=== PATIENT | male | born 1955 | race Two or more races ===

== ENCOUNTER 2021-02-04 19:55 | Inpatient (IN) | payer MEDICAID ==
[~2021-02-04] VITALS: Ht 181.9 cm; Wt 68.0 kg
--- NOTE | 2021-02-04 19:05 | NUR ---
RN NOTES RECEIVED DIRECT ADMIT REPORT FROM [facility], REPORT GIVEN BY ANTONIO HAYWOOD. ALL PERTINENT ADMISSION INFO REGARDING PT NOTED. WILL WAIT FOR PT TO BE TRANSFERRED TO UNIT AND ADDRESS NEEDS ACCORDINGLY. AUDIOLOGY ASSISTANT MADE AWARE.
[2021-02-04 20:15] VITALS: BP 114/64
--- NOTE | 2021-02-04 20:15 | NUR ---
RN NOTES RECEIVED PT DIRECT ADMIT FROM [facility] VIA GURNEY ACCOMPANIED BY 1 RN AND 2 EDGE ROLLER AND TRANSFERRED TO BED VIA 2 PERSON ASSIST. PT IS ALERT AND ORIENTED X4. PT ON 10L OF O2 VIA NRB MASK, NOTED SOB UPON EXERTION. COMPREHENSIVE PHYSICAL ASSESSMENT AND PATIENT CARE DONE. PT'S SON ([phone]) SERVED WINE STEWARD DURING ASSESSMENT. , SAFETY MEASURES AND ISOLATION PRECAUTION IN PLACE,CALL LIGHT WITHIN REACH, WILL CONTINUE MONITOR AND ASSESS THROUGHOUT THE SHIFT. WILL CARRY OUT MD ORDERS ACCORDINGLY. CHURCH HISTORY TEACHER MADE AWARE.
[2021-02-04 22:00] VITALS: BP 114/62
[2021-02-04] MEDS ORDERED: MAG HYDROX/AL HYDROX/SIMETH 30 ML UDC PO PRN (22:00)
[2021-02-04] MEDS ORDERED: ENOXAPARIN SODIUM 40 MG/0.4 ML DISP.SYRIN SQ SCH (22:00)
[2021-02-04] MEDS ORDERED: HYDROCODONE/APAP 5/325MG TABLET PO PRN (22:00)
[2021-02-04] MEDS ORDERED: ONDANSETRON HCL/PF 4 MG/2 ML VIAL IVP PRN (22:00)
[2021-02-04] MEDS ORDERED: MAGNESIUM HYDROXIDE 30 ML UDC PO PRN (22:00)
[2021-02-04] MEDS ORDERED: MORPHINE SULFATE INJ 2 MG/ML DISP.SYRIN IV PRN (22:00)
--- NOTE | 2021-02-04 22:00 | NUR ---
RN NOTES FACILITATED INSERTION OF IV LINE @ R HAND #22; SECURED, INTACT AND FLUSHING WELL. REDEYE GUNNER MADE AWARE. WILL CONTINUE TO MONITOR AND ASSESS THROUGHOUT THE SHIFT.
[2021-02-04] MEDS ORDERED: CEFTRIAXONE 1 G VIAL ONE (22:33)
[2021-02-04] MEDS ORDERED: AZITHROMYCIN 500 MG VIAL ONE (22:52)
[2021-02-04] MEDS: AZITHROMYCIN 500 MG in IV D5W 250 ML IV SCH (22:54)
[2021-02-04] MEDS: CEFTRIAXONE 1 G in IV D5W 50 ML IV SCH (22:56)
--- NOTE | 2021-02-04 23:00 | NUR ---
RN NOTES NO CHANGE IN PATIENT CONDITION AT THIS TIME PATIENT VITALS STABLE, NO SIGNS OF ACUTE RESPIRATORY DISTRESS. PT STILL IN BED RESTING COMFORTABLY. TRACTOR TRAILER MOVING VAN DRIVER MADE AWARE. WILL CONTINUE TO MONITOR AND REASSESS FOR ANY CHANGES THROUGHOUT THE SHIFT.
[2021-02-05] VITALS: BP 111/89
--- NOTE | 2021-02-05 03:00 | NUR ---
RN NOTES PATIENT REMAINS IN NO ACUTE RESPIRATORY DISTRESS AT THIS TIME, NO CHANGES TO CONDITION/STATUS. AM PATIENT CARE DONE. ANTISQUEAK APPLIER WELL AWARE. WILL CONTINUE TO MONITOR AND REASSESS FOR ANY CHANGES THROUGHOUT THE SHIFT
[2021-02-05 04:00] VITALS: BP 107/64
--- NOTE | 2021-02-05 04:30 | NUR ---
RN NOTES PT NOTED TO INTERMITTENTLY REMOVING HIS NRB MASK, O2 SAT DROPPING TO 90s. ADVISED PT NOT TO REMOVE; RISK AND BENEFITS EXPLAINED. PT VERBALIZED UNDERSTANDING. CURRENT O2 SAT THIS TIME 96% WITH NRB MASK ON. BINDER STRIPPER HAND WELL AWARE WILL CONTINUE TO ASSESS AND MONITOR UNTIL THE END OF THE SHIFT.
--- NOTE | 2021-02-05 05:00 | NUR ---
RN NOTES FACILITATED MRSA SWAB TEST ; PT TOLERATED PROCEDURE. SPECIMEN SECURED AND LABELED AND PLACED IN THE BIOHAZARD/SPECIMEN FRIG. OUT AND OUT CIGAR MAKER HAND MADE AWARE.
--- NOTE | 2021-02-05 06:20 | NUR ---
RN NOTES COMMUNICATED WITH PROMISE VALDOVINOS, PROVIDED UPDATE ON PT'S STATUS ( PT HAD BEEN INTERMITTENLY REMOVING NRB MASK AND O2 SAT DROPS TO 90S AND PT BEEN NOTED TO BE COUGHING A LITTLE HARDER AND 02 SAT DROPS LOWER THAN 90%) VERIFIED IF HE WANTS ABG FOR THIS AM AND ANY COUGH MEDS TO ORDER. PROMISE VALDOVINOS ORDERED ROBITUSSIN 5ML PO Q4 PRN. DIAMOND WHEEL EDGER MADE AWARE. WILL CARRY OUT ORDER REQUESTED. WILL CONTINUE TO MONITOR AND ASSESS THROUGHOUT THE SHIFT
[2021-02-05 06:28] LABS: BASOPHILS % (AUTO) 0.1 % (0.0-2.0); HEMATOCRIT 42 % (39-51); HEMOGLOBIN 14.4 g/dL (13.5-17.5); LYMPHOCYTES # (AUTO) 0.4 /CMM (0.8-4.8); LYMPHOCYTES % (AUTO) 7.5 % (20.0-44.0); MEAN CORPUSCULAR HGB CONC 34 g/dl (31.0-36.0); MEAN CORPUSCULAR VOLUME 89 fL (80-96); MONOCYTES # (AUTO) 0.5 /CMM (0.1-1.30); MONOCYTES % (AUTO) 8.7 % (2.0-12.0); NEUTROPHILS # (AUTO) 4.9 /CMM (1.8-8.9); NEUTROPHILS % (AUTO) 83.7 % (43.0-81.0); PLATELET COUNT (AUTO) 222 /CMM (150-450); RED BLOOD CELL COUNT(AUTO) 4.76 MIL/uL (4.5-6.0); WHITE BLOOD COUNT (AUTO) 5.9 K/uL (4.3-11.0)
[2021-02-05 06:53] LABS: ALBUMIN 2.5 g/dL (3.4-5.0); BILIRUBIN,TOTAL 0.4 mg/dL (0.2-1.0); CALCIUM, SERUM 7.7 mg/dL (8.5-10.1); CREATININE 0.7 mg/dL (0.6-1.3); MAGNESIUM 2.2 mg/dL (1.8-2.4); PHOSPHORUS 2.5 mg/dL (2.5-4.9); POTASSIUM 4.2 mmol/L (3.5-5.1); TOTAL PROTEIN, SERUM 6.4 g/dL (6.4-8.2)
--- NOTE | 2021-02-05 06:55 | NUR ---
RN CLOSING NOTE: PATIENT REMAINS IN ROOM IN NO SIGNS OF RESPIRATORY DISTRESS, PATIENT STILL ON 10L OF 02 VIA NRB MASK ;TOLERATING WELL SATURATING @ >93% SP02 AT THE TIME OF ENDORSEMENT. SAFETY MEASURES IMPLEMENTED, BED IN LOWEST POSITION, LOCKED, SIDE RAILS UP, CALL LIGHT WITHIN REACH. ALL NEEDS AND ORDERS ADDRESSED DURING THE SHIFT. IV ACCESS MAINTAINED INTACT, SECURED AND FLUSHING WELL. ALL DUE MEDS GIVEN ORDERED & SCHEDULED ; PATIENT TOLERATED WELL. PATIENT KEPT CLEAN AND COMFORTABLE WITHIN THE SHIFT. PATIENT ENDORSED TO INCOMING SHIFT RN WITH STABLE VITAL SIGN AND FOR CONTINUITY OF CARE.
[2021-02-05 06:59] LABS: THYROID STIMULATING HORMONE 0.508 uIU/mL (0.358-3.74)
--- NOTE | 2021-02-05 07:45 | NUR ---
REPORT RECEIVED FROM HANNA ALVAREZ. PT IS COVID POSITIVE. ALERT OX4, AMBULATORY. PERUVIAN SPEAKING ONLY. PT ON 10 NRB MASK. PT CHECKED ON HOURLY AND PRN BY NURSING STAFF.
[2021-02-05 08:00] VITALS: BP 115/65
[2021-02-05] MEDS: DEXAMETHASONE SOD PHOSPHATE 10 MG/ML VIAL IV SCH (08:22)
[2021-02-05 12:00] VITALS: BP 109/67
[2021-02-05] MEDS: ENOXAPARIN SODIUM 40 MG/0.4 ML DISP.SYRIN SQ SCH ×2 (15:03→21:13)
[2021-02-05 16:00] VITALS: BP 110/66
--- NOTE | 2021-02-05 18:24 | NUR ---
END OF SHIFT NOTE: PT CONTINUES TO BE ON 10L NRB MASK. PT IS 1 ASST TO COMMODE OR INDEPENDENT WITH URINAL. NO CHANGES IN PATIENT STATUS THIS SHIFT. VSS. PT CHECKED ON HOURLY AND PRN BY NURSING STAFF.
--- NOTE | 2021-02-05 19:25 | NUR ---
PEANUT BLANCHER: CONTINUITY OF CARE Patient in bed, awake, A/O x3. On 10L NRB mask, appears weak, coughing. No c/o pain. Made comfortable in bed to upright posture. Fall precaution maintained.
[2021-02-05 20:15] VITALS: BP 108/61
[2021-02-05] MEDS: GUAIFENESIN/D-METHORPHAN HB 5 ML UDC PO PRN (21:09)
[2021-02-05] MEDS: CEFTRIAXONE 1 G in IV D5W 50 ML IV SCH (21:09)
--- NOTE | 2021-02-05 21:17 | NUR ---
ANTICOAGULANT H/H 14. Plt 222 No signs of bleeding. Lovenox injection given co-signed by ANTONIO Simmons.
[2021-02-05] MEDS: AZITHROMYCIN 500 MG in IV D5W 250 ML IV SCH (22:17)
[2021-02-06] VITALS: BP 127/71
[2021-02-06 04:56] VITALS: BP 135/72
--- NOTE | 2021-02-06 06:40 | NUR ---
ROUTE SPECIALIST: END OF SHIFT REPORT Sinus rhythm in the Tele monitor HR 62. Remains on NRB mask, Oxygen sat to low 80's with exertion. Now on 15L NRB mask. Cough given Robitussin with relief. Headache improved with [place], denies N/V. On IV Rocephin and Zithromax, afebrile. Plan to continue antibiotic, Decadron, and Lovenox, Oxygen support. Fall precaution maintained.
[2021-02-06 07:06] LABS: C-REACTIVE PROTEIN 4.6 mg/dL (0.0-0.9)
--- NOTE | 2021-02-06 07:20 | NUR ---
RN OPENING NOTES RECEIVED PT IN BED, AWAKE, A/O X4. 15L O2 VIA NRB SATURATION @90%. NO SOB OR ANY RESPIRATORY DISTRESS NOTED. SR ON TELE MONITOR. SKIN IS INTACT. REGULAR DIET. IV ACCESS AT RHAND #22 AND RAC #20 BOTH INTACT AND PATENT. NO PAIN REPORTED AT TIME. SAFETY MEASURES IN PLACE. CALL LIGHT WITHIN REACH. BED LOCKED AND AT LOWEST POSITION WITH SIDE RAILS UP X2. WILL CONTINUE TO MONITOR.
[2021-02-06 08:00] VITALS: BP 119/67
[2021-02-06] MEDS ORDERED: ALBUTEROL SULFATE INH 18 GM HFA.AER.AD IH PRN (08:30)
[2021-02-06] MEDS: DEXAMETHASONE SOD PHOSPHATE 10 MG/ML VIAL IV SCH (09:29)
[2021-02-06] MEDS: ENOXAPARIN SODIUM 40 MG/0.4 ML DISP.SYRIN SQ SCH ×2 (09:34→21:21)
[2021-02-06 12:00] VITALS: BP 137/69
--- NOTE | 2021-02-06 12:00 | NUR ---
RT Pt had low SpO2 of 84-86% on non-rebreather at 15L. Pt was placed on vapotherm per MD order. Addendum: 02/06/21 at 1307 by SHABBIR TOMAS RT Amended: Links added.
--- NOTE | 2021-02-06 12:18 | NUR ---
RN NOTES PT DESATS TO 86% WITH SOB. CHARGE NURSE AWARE. PT ON HIGH FLOW 40L, 100% O2, SATURATING @92%. WILL CONTINUE TO MONITOR.
[2021-02-06] MEDS: ACETAMINOPHEN 325 MG TABLET PO PRN (13:13)
[2021-02-06 16:00] VITALS: BP 135/67
--- NOTE | 2021-02-06 18:44 | NUR ---
RN CLOSING NOTES PT RESTING IN BED. ON HIGH FLOW 40L O2 100%, SATURATION AT 90-95%. NO SOB OR ANY DISTRESS NOTED. NO SIGNIFICANT CHANGES THROUGHOUT THE SHIFT. NO PAIN REPORTED AT THIS TIME. SAFETY MEASURES MAINTAINED. ENDORSED TO NIGHT RN FOR CONTINUATION OF CARE.
--- NOTE | 2021-02-06 19:59 | NUR ---
RN NOTE PATIENT A/OX4, IN BED WITH HEAD OF BED ELEVATED. ON HIGH FLOW 40L AND NON-REBREATHER 15L, O2 SAT 94%. NO SOB OR ANY DISTRESS AT THIS TIME. TELE MONITOR ON, SR. IV ACCESS ON RIGHT HAND #22 AND RIGHT AC #20 PATENT AND INTACT. FLUSHED WITH NS. NO S/S OF INFILTRATION. SAFETY MEASURES IMPLEMENTED. CALL LIGHT WITHIN REACH. BED LOCKED AND AT LOWEST POSITION. WILL CONTINUE TO MONITOR.
[2021-02-06 20:00] VITALS: BP 124/71
[2021-02-06] MEDS: CEFTRIAXONE 1 G in IV D5W 50 ML IV SCH (21:20)
[2021-02-06] MEDS: AZITHROMYCIN 500 MG in IV D5W 250 ML IV SCH (21:56)
[2021-02-07] VITALS: BP 121/61
[2021-02-07] MEDS: GUAIFENESIN/D-METHORPHAN HB 5 ML UDC PO PRN ×4 (01:53→20:04)
[2021-02-07] MEDS: ACETAMINOPHEN 325 MG TABLET PO PRN ×2 (03:28→12:10)
[2021-02-07 04:00] VITALS: BP 140/72
--- NOTE | 2021-02-07 07:25 | NUR ---
RN CLOSING NOTE PATIENT RECEIVED RESTING IN SEMI-FOWLERS POSITION, A/OX4. PATIENT IS ON O2 THERAPY VIA HIGH FLOW 40 LPM + NON-REBREATHER 15 LPM. NO SOB OR ANY DISTRESS AT THIS TIME. TELE MONITOR ON. IV ACCESS ON RIGHT HAND #22 AND RIGHT AC #20 PATENT AND INTACT. NO S/S OF INFILTRATION. SAFETY MEASURES IMPLEMENTED, BED LOCKED IN LOWEST POSITION, SIDE RAILS UP X2, CALL LIGHT WITHIN REACH. WILL CONTINUE TO MONITOR AND PROVIDE CARE THROUGHOUT SHIFT.
--- NOTE | 2021-02-07 07:37 | NUR ---
RN NOTE PATIENT A/OX4, IN BED WITH HEAD OF BED ELEVATED. ON HIGH FLOW 40L AND NON-REBREATHER 15L, O2 SAT 95%. NO SOB OR ANY DISTRESS AT THIS TIME. TELE MONITOR ON, SR. IV ACCESS ON RIGHT HAND #22 AND RIGHT AC #20 PATENT AND INTACT. FLUSHED WITH NS. NO S/S OF INFILTRATION. COUGH RELIEVED BY ROBITUSSIN PRN ORDER. SAFETY MEASURES IMPLEMENTED. CALL LIGHT WITHIN REACH. BED LOCKED AND AT LOWEST POSITION. ENDORSE TO AM SHIFT.
[2021-02-07 08:00] VITALS: BP_SYST 122; BP_SYST 170; BP_DIAS 68; BP_DIAS 94
[2021-02-07] MEDS: ENOXAPARIN SODIUM 40 MG/0.4 ML DISP.SYRIN SQ SCH ×2 (09:48→20:09)
[2021-02-07 12:00] VITALS: BP 136/71
[2021-02-07] MEDS: methylPREDNISolone SOD SUCC 125 MG/2ML VIAL IV SCH ×2 (12:10→20:07)
[2021-02-07 12:31] LABS: FERRITIN 4617 ng/mL (8-388)
[2021-02-07 16:00] VITALS: BP 135/74
--- NOTE | 2021-02-07 19:09 | NUR ---
RN CLOSING NOTE PATIENT RESTING IN SEMI-FOWLERS POSITION, A/OX4. PATIENT IS ON O2 THERAPY VIA HIGH FLOW 40 LPM + NON-REBREATHER 15 LPM. NO SOB OR ANY DISTRESS AT THIS TIME. TELE MONITOR ON. IV ACCESS ON RIGHT HAND #22 AND RIGHT AC #20 PATENT AND INTACT. NO S/S OF INFILTRATION. SAFETY MEASURES IMPLEMENTED, BED LOCKED IN LOWEST POSITION, SIDE RAILS UP X2, CALL LIGHT WITHIN REACH. ISOLATION PRECAUTIONS MAINTAINED. WILL ENDORSE CONTINUATION OF CARE TO UPCOMING SHIFT.
--- NOTE | 2021-02-07 19:10 | NUR ---
RN OPENING NOTE RECEIVED PATIENT IN BED RESTING ALERT ORIENTED X4 VERBALLY RESPONSIVE JORDANIAN SPEAKER ONLY,COVID POSITIVE, ON HIGH FLOW OXYGEN 40L AND 15L ON NON REBREATHER MASK,O2:92% IV SITE IS ON RIGHT HAND AND RIGHT AC INTACT PATENT CONTINENT TO BOWEL/BLADDER AMBULATORY WITH ASSIST,CALL LIGHT WITHIN REACH,BED IN LOW POSITION AND LOCKED,CONTINUE TO MONITOR.
[2021-02-07 20:00] VITALS: BP 119/62
[2021-02-07] MEDS: AZITHROMYCIN 250 MG TABLET PO SCH (20:07)
[2021-02-07] MEDS: CEFTRIAXONE 1 G in IV D5W 50 ML IV SCH (21:43)
[2021-02-07] MEDS: ZOLPIDEM TARTRATE 5 MG TABLET PO PRN (21:44)
[2021-02-08] VITALS: BP 136/75
[2021-02-08 04:00] VITALS: BP 133/50
[2021-02-08] MEDS: methylPREDNISolone SOD SUCC 125 MG/2ML VIAL IV SCH ×3 (04:31→20:10)
[2021-02-08] MEDS: GUAIFENESIN/D-METHORPHAN HB 5 ML UDC PO PRN ×2 (04:35→20:10)
--- NOTE | 2021-02-08 06:35 | NUR ---
RN CLOSING NOTE PATIENT REMAINS ON ALERT ORIENTED X4 VERBALLY RESPONSIVE,LATVIAN SPEAKER ONLY,ON 40L HIGH FLOW OXYGEN 100% AND 15L NON REBREATHER MASK O2:90%,IV SITE IS ON RIGHT HAND AND RIGHT AC INTACT PATIENT,AMBULATORY WITH ASSIST,CONTINENT TO BOWEL/BLADDER, ALL DUE MEDS GIVEN MD ORDERED KEEP CLEAN AND DRY ALL THE TIME,KEPT CALL LIGHT WITHIN REACH,ALL NEEDS MET ENDORSE NEXT COMING SHIFT FOR CONTINUATION OF CARE.
--- NOTE | 2021-02-08 07:15 | NUR ---
RN OPENING NOTES RECEIVED PT IN BED, AWAKE, A/O X4. ON HIGH FLOW 40L FiO2 100% WITH 15L NRB SATURATION @90%. NO SOB OR ANY RESPIRATORY DISTRESS NOTED. SR ON TELE MONITOR. SKIN IS INTACT. IV ACCESS AT RHAND #22 AND RAC #20 BOTH INTACT AND PATENT. NO PAIN REPORTED AT TIME. SAFETY MEASURES IN PLACE. CALL LIGHT WITHIN REACH. BED LOCKED AND AT LOWEST POSITION WITH SIDE RAILS UP X2. WILL CONTINUE TO MONITOR.
[2021-02-08 07:54] LABS: ABG BASE EXCESS -0.7 mmol/L; ABG OXYGEN SATURATION 95.5 % (92.0-98.5); ABG PCO2 31.6 mmHg (35.0-45.0); ABG PH 7.462 (7.350-7.450); ABG PO2 78.8 mmHg (75.0-100.0); AaDO2 602.6 mmHg; COHb 0.1 % (0.5-1.5); MetHb 0.4 % (0.0-1.5); SITE, ABG Right Radial; VENT MODE, BG HFNC 40L/100% + NRB 15L
[2021-02-08 08:00] VITALS: BP 133/73
[2021-02-08] MEDS: ENOXAPARIN SODIUM 40 MG/0.4 ML DISP.SYRIN SQ SCH ×2 (08:49→20:12)
[2021-02-08 12:00] VITALS: BP 111/66
[2021-02-08 13:09] LABS: C-REACTIVE PROTEIN 6.9 mg/dL (0.0-0.9)
[2021-02-08 16:00] VITALS: BP 123/65
[2021-02-08] MEDS ORDERED: diphenhydrAMINE HCL 50 MG/ML VIAL IV ONE (16:00)
[2021-02-08] MEDS ORDERED: ACETAMINOPHEN 325 MG TABLET PO ONE (16:00)
[2021-02-08] MEDS ORDERED: TOCILIZUMAB 400 MG in IV NS 0.9% 80 ML IV ONE (16:30)
--- NOTE | 2021-02-08 18:44 | NUR ---
RN CLOSING NOTES PT RESTING IN BED. SATURATION AT 90-95%. NO SOB OR ANY DISTRESS NOTED. NO SIGNIFICANT CHANGES THROUGHOUT THE SHIFT. NO PAIN REPORTED AT THIS TIME. SAFETY MEASURES MAINTAINED. ENDORSED TO NIGHT RN FOR CONTINUATION OF CARE.
--- NOTE | 2021-02-08 19:10 | NUR ---
RN OPENING NOTE RECEIVED PATIENT IN BED RESTING ALERT ORIENTED X4 VERBALLY RESPONSIVE [place] SPEAKER ONLY,ON HIGH FLOW OXYGEN 40L FIO2:100% AND 15L NONREBREATHER MASK O2:89% IV SITE ARE ON RIGHT HAND AND RIGHT AC INTACT PATENT CONTINENT TO BOWEL/BLADDER,AMBULATORY WITH ASSIST,CALL LIGHT WITHIN REACH,SAFETY MEASURE IMPLEMENT BED IN LOW POSITION AND LOCKED,CONTINUE TO MONITOR.
[2021-02-08 20:00] VITALS: BP 133/67
[2021-02-08] MEDS: AZITHROMYCIN 250 MG TABLET PO SCH (20:10)
[2021-02-08] MEDS: ZOLPIDEM TARTRATE 5 MG TABLET PO PRN (21:41)
[2021-02-08] MEDS: CEFTRIAXONE 1 G in IV D5W 50 ML IV SCH (21:41)
[2021-02-09] VITALS: BP 122/61
[2021-02-09 04:00] VITALS: BP 117/55
[2021-02-09] MEDS: methylPREDNISolone SOD SUCC 125 MG/2ML VIAL IV SCH ×3 (04:12→20:20)
--- NOTE | 2021-02-09 06:47 | NUR ---
RN CLOSING NOTE PATIENT REMAINS ON ALERT ORIENTED X4 VERBALLY RESPONSIVE [place] SPEAKER ONLY,NO SOB NOT ACUTE DISTRESS NOTED,HE IS ON HIGH FLOW OXYGEN 40L FIO2:100% AND 15L NON REBREATHER MASK O2:92%,IV SITE IS ON RIGHT HAND AND RIGHT AC INTACT PATENT ALL DUE MEDS GIVEN MD ORDERED,KEPT CLEAN AND DRY ALL THE TIME,KEPT COMFORTABLE ALL NEEDS MET ENDORSE NEXT COMING SHIFT FOR CONTINUATION OF CARE.
--- NOTE | 2021-02-09 07:15 | NUR ---
RN OPENING NOTE RECEIVED PATIENT IN BED RESTING ALERT ORIENTED X4 VERBALLY RESPONSIVE PANAMANIAN SPEAKER ONLY,ON HIGH FLOW OXYGEN 40L FIO2:100% AND 15L NONREBREATHER MASK O2 SATURATION:90%. IV SITES ON RIGHT HAND AND RIGHT AC, BOTH INTACT & PATENT. NO S/S OF INFECTION AT THIS TIME. CONTINENT TO BOWEL/BLADDER, AMBULATORY WITH ASSIST, CALL LIGHT WITHIN REACH, SAFETY MEASURE IMPLEMENT BED IN LOW POSITION AND LOCKED, WILL CONTINUE TO MONITOR AND PROVIDE TREATMENT.
[2021-02-09 08:00] VITALS: BP 133/72
[2021-02-09] MEDS: ENOXAPARIN SODIUM 40 MG/0.4 ML DISP.SYRIN SQ SCH ×2 (08:40→20:21)
[2021-02-09 12:00] VITALS: BP 129/68
[2021-02-09 16:00] VITALS: BP 139/77
--- NOTE | 2021-02-09 17:45 | NUR ---
PATIENT TRANSFERRED TO ROOM 103-1
--- NOTE | 2021-02-09 18:56 | NUR ---
RN CLOSING NOTE PATIENT IN BED RESTING ALERT ORIENTED X4 VERBALLY RESPONSIVE PARAGUAYAN SPEAKER ONLY,ON HIGH FLOW OXYGEN 40L FIO2:100% AND 15L NONREBREATHER MASK O2 SATURATION:93%. IV SITES ON RIGHT HAND AND RIGHT AC, BOTH INTACT & PATENT. NO S/S OF INFECTION AT THIS TIME. CONTINENT TO BOWEL/BLADDER, AMBULATORY WITH ASSIST, CALL LIGHT WITHIN REACH, SAFETY MEASURE IMPLEMENT BED IN LOW POSITION AND LOCKED, WILL ENDORSE TO INSURANCE SALES SPECIALIST NURSE FOR DIAZ.
--- NOTE | 2021-02-09 19:10 | NUR ---
RECEIVED PT ON BED AWAKE A/O X4 MAORI SPEAKING ONLY ON HIGH FLOW O2 40L FIO2 100% AND NRM 15L SPO2 93-95% BREATHING EVEN AND UNLABORED, COVID POSITIVE, DID NOT RECEIVED COVID VACCINE PER THE SON IN WHICH WE CALL WHEN I DO ROUNDS ON PATIENTS ROOM, PT IS EATING ALSO WHEN I DO ROUNDS TOLERATING WELL, TELE MONITOR READS SINUS RHYTHM 80'S BED ON LWOEST POSITION AND LOCKED SIDE RAILS UP X 2 CALL LIGHT AND URINAL AT BED SIDE WILL CONT TO MONITOR
[2021-02-09 20:00] VITALS: BP 131/69
[2021-02-10] VITALS: BP 132/61
[2021-02-10 04:00] VITALS: BP 129/59
[2021-02-10] MEDS: methylPREDNISolone SOD SUCC 125 MG/2ML VIAL IV SCH ×3 (04:04→20:10)
[2021-02-10] MEDS: GUAIFENESIN/D-METHORPHAN HB 5 ML UDC PO PRN ×2 (04:56→05:10)
[2021-02-10 06:16] LABS: BASOPHILS % (AUTO) 0.2 % (0.0-2.0); HEMATOCRIT 41 % (39-51); HEMOGLOBIN 13.4 g/dL (13.5-17.5); LYMPHOCYTES # (AUTO) 0.3 /CMM (0.8-4.8); MEAN CORPUSCULAR HGB CONC 33 g/dl (31.0-36.0); MEAN CORPUSCULAR VOLUME 90 fL (80-96); MONOCYTES # (AUTO) 0.9 /CMM (0.1-1.30); MONOCYTES % (AUTO) 5.4 % (2.0-12.0); NEUTROPHILS # (AUTO) 14.7 /CMM (1.8-8.9); NEUTROPHILS % (AUTO) 92.4 % (43.0-81.0); PLATELET COUNT (AUTO) 436 /CMM (150-450); RED BLOOD CELL COUNT(AUTO) 4.53 MIL/uL (4.5-6.0); WHITE BLOOD COUNT (AUTO) 15.9 K/uL (4.3-11.0)
[2021-02-10 06:39] LABS: CALCIUM, SERUM 8.5 mg/dL (8.5-10.1); CREATININE 0.7 mg/dL (0.6-1.3); POTASSIUM 4.4 mmol/L (3.5-5.1)
--- NOTE | 2021-02-10 06:41 | NUR ---
PT ON BED SLEEPING EASY TO WAKE NO SIGN AND SYMPTOMS OF RESPIRATORY DISTRESS STILL ON HIGH FLOW 40L 100% FIO2 AND 15L O2 VIA NON REBREATHER MASK SPO2 95-97%, NO SIGNIFICANT CHANGES ON CONDITION NOTED ALL NEEDS ATTENDED, DROPLET ISOLATION FOR COVID 19 MAINTAIN BED ON LOWEST POSITION AND LOCKED SIDE RAILS UP X2 CALL LIGHT WITHIN REACH
--- NOTE | 2021-02-10 07:46 | NUR ---
RN OPENING NOTE PATIENT IS IN BED WITH HOB AT SEMI FOWLERS POSITION. PATIENT IS ON HIGH FLOW 40L AT 100% AND NRB 15L. PATIENT IS AOX4. SKIN IS INTACT. RAC #20 IS PATENT AND INTACT. BED IS LOCKED IN THE LOWEST POSITION, 3 GUARD RAILS RAISED, CALL ALVARADO WITHIN REACH, AND ALL HOSPITAL SAFETY PRECAUTIONS ARE BEING FOLLOWED. WILL CONTINUE TO MONITOR THROUGHOUT SHIFT.
[2021-02-10 08:00] VITALS: BP 137/71
[2021-02-10] MEDS: ENOXAPARIN SODIUM 40 MG/0.4 ML DISP.SYRIN SQ SCH ×2 (09:01→20:10)
[2021-02-10 12:00] VITALS: BP 125/69
[2021-02-10 16:00] VITALS: BP 121/67
--- NOTE | 2021-02-10 18:46 | NUR ---
RN CLOSING NOTE PATIENT IS IN BED WITH HOB AT SEMI FOWLERS POSITION. PATIENT IS ON HIGH FLOW 40L AT 100% AND NRB 15L. PATIENT IS AOX4. SKIN IS INTACT. RAC #20 IS PATENT AND INTACT. BED IS LOCKED IN THE LOWEST POSITION, 3 GUARD RAILS RAISED, CALL ALVARADO WITHIN REACH, AND ALL HOSPITAL SAFETY PRECAUTIONS ARE BEING FOLLOWED. ALL DUE MEDS GIVEN AND PATIENT REMAINED STABLE THROUGHOUT SHIFT. WILL ENDORSE TO ELECTRICAL CAD DESIGNER RN.
--- NOTE | 2021-02-10 19:18 | NUR ---
RECEIVED PT ON BED AWAKE A/O X4 KAZAKH SPEAKING ONLY ON HIGH FLOW O2 40L FIO2 100% AND NRM 15L SPO2 93-95% BREATHING EVEN AND UNLABORED, COVID POSITIVE,, TELE MONITOR READS SINUS NADIA'S 50'S AHVE RIGHT AC # 20 IV PATENT AND FLUSHED, PT IS USING URINAL WEITH DOMENICA COLOR URINE OUTPUT, BED ON LOWEST POSITION AND LOCKED SIDE RAILS UP X 2 CALL LIGHT AND URINAL AT BED SIDE WILL CONT TO MONITOR
[2021-02-10 20:00] VITALS: BP 130/69
[2021-02-11] VITALS: BP 126/63
--- NOTE | 2021-02-11 03:30 | NUR ---
PT SPO2 THE ENTIRE NIGHT IS ON 97-98% RT REMOVED THE NON REBREATHER MASK TITRATION TRIAL PT SPO2 VIA HIGH FLOW 40L 100% FIO2 IS 91-93% WILL CONT TO MONITOR THE PT
[2021-02-11 04:00] VITALS: BP 128/62
[2021-02-11] MEDS: methylPREDNISolone SOD SUCC 125 MG/2ML VIAL IV SCH ×3 (04:16→21:06)
[2021-02-11 06:32] LABS: HEMATOCRIT 42 % (39-51); HEMOGLOBIN 13.9 g/dL (13.5-17.5); LYMPHOCYTES # (AUTO) 0.3 /CMM (0.8-4.8); LYMPHOCYTES % (AUTO) 2.1 % (20.0-44.0); MEAN CORPUSCULAR HGB CONC 33 g/dl (31.0-36.0); MEAN CORPUSCULAR VOLUME 91 fL (80-96); MONOCYTES # (AUTO) 0.7 /CMM (0.1-1.30); MONOCYTES % (AUTO) 4.6 % (2.0-12.0); NEUTROPHILS % (AUTO) 93.3 % (43.0-81.0); PLATELET COUNT (AUTO) 422 /CMM (150-450); RED BLOOD CELL COUNT(AUTO) 4.61 MIL/uL (4.5-6.0)
[2021-02-11 06:33] LABS: CALCIUM, SERUM 8.2 mg/dL (8.5-10.1); CREATININE 0.6 mg/dL (0.6-1.3); POTASSIUM 4.6 mmol/L (3.5-5.1)
--- NOTE | 2021-02-11 06:41 | NUR ---
PT ON BED AWAKE NO SIGN AND SYMPTOMS OF RESPIRATORY DISTRESS STILL ON HIGH FLOW 40L 100% FIO2 AND HE PUT BACK THE NON REBREATHER MASK @ 0530 HIS SPO2 95-97% NOW, NO SIGNIFICANT CHANGES ON CONDITION NOTED ALL NEEDS ATTENDED, DROPLET ISOLATION FOR COVID 19 MAINTAIN BED ON LOWEST POSITION AND LOCKED SIDE RAILS UP X2 CALL LIGHT WITHIN REACH
--- NOTE | 2021-02-11 07:30 | NUR ---
RN CLOSING NOTES Patient is alert and oriented,breathing even and unlabored. On via high flow at 75% Fi 02 and 40 liters with 02 sat of 96%. No c/o pain or discomfort. Patient will be monitored. Call light with in reach. Bed is in lowest and locked position. Will endorse to next shift for DIAZ. Addendum: 02/11/21 at 1842 by RICHARD CHAVIRA RN wRONG TIME
--- NOTE | 2021-02-11 07:30 | NUR ---
RN OPENING NOTES Patient is alert and oriented,breathing even and unlabored. On 02 via high flow at 100% Fi 02 and 40 liters with 02 sat of 98%. No c/o pain or discomfort. Patient will be monitored. Call light with in reach. Bed is in lowest and locked position.
[2021-02-11 08:00] VITALS: BP 121/71
--- NOTE | 2021-02-11 08:00 | NUR ---
Patient's fi02 lowered to 80%. yuriy well
[2021-02-11] MEDS: ENOXAPARIN SODIUM 40 MG/0.4 ML DISP.SYRIN SQ SCH ×2 (08:33→21:08)
--- NOTE | 2021-02-11 11:00 | NUR ---
Patient's fi02 lowered to 60 %, yuriy well per Md Jones orders
[2021-02-11 12:00] VITALS: BP_SYST 121; BP_SYST 129; BP_DIAS 71
[2021-02-11 12:34] LABS: C-REACTIVE PROTEIN 0.7 mg/dL (0.0-0.9)
[2021-02-11 16:00] VITALS: BP 134/74
--- NOTE | 2021-02-11 18:00 | NUR ---
RT INCREASED FI 02 TO 75 % VIA HIGH FLOW DUE TO 02 SAT OF 89 %. NO C/O SOB VERALIZED
--- NOTE | 2021-02-11 18:38 | NUR ---
RN CLOSING NOTES Patient is alert and oriented,breathing even and unlabored. On 02 via high flow at 75% Fi 02 and 40 liters with 02 sat of 96%. No c/o pain or discomfort. Patient will be monitored. Call light with in reach. Bed is in lowest and locked position. Will endorse to next shift for DIAZ.
--- NOTE | 2021-02-11 19:30 | NUR ---
RT PT RECVD ON HFNC 40 LPM, 75% FIO2 WITH SPO2 93-94%. PT IS AWAKE AND ALERT. NO SOB OR RESPIRATORY DISTRESS NOTED AT THIS TIME, WILL CONTINUE TO MONITOR THROUGHOUT SHIFT. HFNC PLUGGED INTO RED OUTLET.
--- NOTE | 2021-02-11 19:35 | NUR ---
RN NOTE RECEIVED PT IN BED, ALERT AND ORIENTED. TALKING TO FAMILY OVER THE PHONE. NO SIGNS OF DISTRESS NOTED. ON HIGH FLOW NC 40L FIO2 75 %. ON TELE MONITORING SHOWS SINUS NADIA WITH HR OF 54, PT BASELINE. RAC IV PATENT AND INTACT, FLUSHED. ALL SAFETY MEASURES IMPLEMENTED PER PROTOCOL. SIDE RAILS UP, BED LOCKED IN LOWEST POSITION. CALL LIGHT WITHIN REACH.
[2021-02-11 20:00] VITALS: BP 133/78
--- NOTE | 2021-02-11 23:30 | NUR ---
RN NOTE ASSISTED PT TO BEDSIDE COMMODE, WITH EPISODE OF DESATURATION TO 85%. ASSISTED BACK TO BED, KEPT HOB ELEVATED. O2 SAT GOES BACK UP TO 95%
[2021-02-12] VITALS: BP 124/68
[2021-02-12 04:00] VITALS: BP 113/66
[2021-02-12] MEDS: methylPREDNISolone SOD SUCC 125 MG/2ML VIAL IV SCH ×3 (05:04→20:00)
[2021-02-12 06:43] LABS: CREATININE 0.4 mg/dL (0.6-1.3); POTASSIUM 4.6 mmol/L (3.5-5.1)
--- NOTE | 2021-02-12 06:46 | NUR ---
RN CLOSING NOTES PT TOLERATING HIGHFLOW SETTINGS. NO SIGNS OF RESP DISTRESS NOTED. KEPT HOB ELEVATED. PT CONTINENT, ABLE TO USE URINAL. IV REMAIN PATENT AND INTACT. VS STABLE. CALL LIGHT WITHIN REACH AT ALL TIMES. WILL ENDORSE TO NEXT SHIFT NURSE FOR DIAZ.
[2021-02-12 07:16] LABS: BASOPHILS % (AUTO) 0.1 % (0.0-2.0); HEMATOCRIT 43 % (39-51); LYMPHOCYTES # (AUTO) 0.5 /CMM (0.8-4.8); LYMPHOCYTES % (AUTO) 3.3 % (20.0-44.0); MEAN CORPUSCULAR HGB CONC 33 g/dl (31.0-36.0); MEAN CORPUSCULAR VOLUME 90 fL (80-96); MONOCYTES # (AUTO) 0.8 /CMM (0.1-1.30); MONOCYTES % (AUTO) 5.1 % (2.0-12.0); NEUTROPHILS # (AUTO) 13.6 /CMM (1.8-8.9); NEUTROPHILS % (AUTO) 91.5 % (43.0-81.0); PLATELET COUNT (AUTO) 430 /CMM (150-450); RED BLOOD CELL COUNT(AUTO) 4.74 MIL/uL (4.5-6.0); WHITE BLOOD COUNT (AUTO) 14.9 K/uL (4.3-11.0)
--- NOTE | 2021-02-12 07:30 | NUR ---
RN OPENING NOTE PATIENT IS CURRENTLY IN BED WITH HOB AT SEMI FOWLERS POSITION. PATIENT IS ON HIGH FLOW 40L AT 75%. PATIENT IS AOX4. SINUS NADIA NOTED ON MONITOR. SKIN IS INTACT. RAC #20 IS PATENT AND INTACT. BED IS LOCKED IN THE LOWEST POSITION, 3 GUARD RAILS RAISED, CALL ALVARADO WITHIN REACH, AND ALL HOSPITAL SAFETY PRECAUTIONS ARE BEING FOLLOWED. WILL CONTINUE TO MONITOR THROUGHOUT SHIFT.
[2021-02-12 08:00] VITALS: BP 120/70
[2021-02-12] MEDS: ENOXAPARIN SODIUM 40 MG/0.4 ML DISP.SYRIN SQ SCH ×2 (09:07→20:01)
[2021-02-12 12:00] VITALS: BP 126/77
[2021-02-12 16:00] VITALS: BP 127/69
[2021-02-12] MEDS: ENSURE ENLIVE 237 ML LIQUID (VANILLA) PO SCH (16:57)
--- NOTE | 2021-02-12 18:23 | NUR ---
RN CLOSING NOTE PATIENT IS CURRENTLY IN BED WITH HOB AT SEMI FOWLERS POSITION. PATIENT IS ON HIGH FLOW 40L AT 75%. PATIENT IS AOX4. SINUS NADIA NOTED ON MONITOR. SKIN IS INTACT. RAC #20 IS PATENT AND INTACT. BED IS LOCKED IN THE LOWEST POSITION, 3 GUARD RAILS RAISED, CALL ALVARADO WITHIN REACH, AND ALL HOSPITAL SAFETY PRECAUTIONS ARE BEING FOLLOWED. ALL DUE MEDS GIVEN AND PATIENT REMAINED STABLE THROUGHOUT SHIFT. WILL ENDORSE TO EMBLEM CUTTER RN FOR DIAZ.
--- NOTE | 2021-02-12 19:21 | NUR ---
RN NOTE RECEIVED PT AWAKE AND ALERT IN BED WITH HEAD OF BED ELEVATED. CURRENTLY ON HI FLOW NASAL CANNULA 40L AND FIO2 75%. SPO2 96%. RESPIRATIONS UNLABORED, DENIES PAIN OR DISCOMFORT, URINAL AT BEDSIDE REACHABLE, WITH RIGHT AC IV PATENT AND FLUSHING WELL WITHOUT ISSUES, PLAN OF CARE DISCUSSED, CALL LIGHT WITHIN REACH, SAFETY MEASURES IN PLACE PER PROTOCOL, WILL MONITOR PATIENT.
[2021-02-12 20:00] VITALS: BP 132/76
[2021-02-13] VITALS: BP 117/80
[2021-02-13 04:00] VITALS: BP 137/79
[2021-02-13] MEDS: methylPREDNISolone SOD SUCC 125 MG/2ML VIAL IV SCH ×3 (04:03→20:08)
[2021-02-13 05:58] LABS: BASOPHILS # (AUTO) 0.1 /CMM (0.0-0.2); BASOPHILS % (AUTO) 0.4 % (0.0-2.0); EOSINOPHILS % (AUTO) 0.1 % (0.0-6.0); HEMATOCRIT 43 % (39-51); HEMOGLOBIN 14.1 g/dL (13.5-17.5); LYMPHOCYTES # (AUTO) 0.7 /CMM (0.8-4.8); LYMPHOCYTES % (AUTO) 3.9 % (20.0-44.0); MEAN CORPUSCULAR HGB CONC 33 g/dl (31.0-36.0); MEAN CORPUSCULAR VOLUME 90 fL (80-96); MONOCYTES % (AUTO) 5.8 % (2.0-12.0); NEUTROPHILS # (AUTO) 15.7 /CMM (1.8-8.9); NEUTROPHILS % (AUTO) 89.8 % (43.0-81.0); PLATELET COUNT (AUTO) 420 /CMM (150-450); RED BLOOD CELL COUNT(AUTO) 4.73 MIL/uL (4.5-6.0); WHITE BLOOD COUNT (AUTO) 17.5 K/uL (4.3-11.0)
[2021-02-13 06:38] LABS: ALBUMIN 2.4 g/dL (3.4-5.0); BILIRUBIN,TOTAL 0.8 mg/dL (0.2-1.0); CALCIUM, SERUM 8.4 mg/dL (8.5-10.1); CREATININE 0.5 mg/dL (0.6-1.3); POTASSIUM 4.5 mmol/L (3.5-5.1); TOTAL PROTEIN, SERUM 5.6 g/dL (6.4-8.2)
--- NOTE | 2021-02-13 06:44 | NUR ---
RN NOTE NO ACUTE CHANGES OBSERVED OVERNIGHT. AWAKE WITH HEAD OF BED ELEVATED. REMAINS ON HI FLOW NASAL CANNULA. TOLERATING SETTINGS WELL. RESPIRATIONS EVEN AND UNLABORED, SPO2 98% VIA CONTINUOUS PULSE OXIMETRY. DENIES PAIN OR DISCOMFORT. RAC IV PATENT. ALL NEEDS MET AND ATTENDED TO, SAFETY MEASURES IN PLACE PER PROTOCOL, CALL LIGHT WITHIN REACH,
--- NOTE | 2021-02-13 07:30 | NUR ---
RN NOTE RECEIVED PT AWAKE AND ALERT IN BED WITH HEAD OF BED ELEVATED. CURRENTLY ON HI FLOW NASAL CANNULA 40L AND FIO2 75%. SPO2 96%. RESPIRATIONS UNLABORED, DENIES PAIN OR DISCOMFORT, URINAL AT BEDSIDE REACHABLE, WITH RIGHT AC IV PATENT AND FLUSHING WELL WITHOUT ISSUES, PLAN OF CARE DISCUSSED, CALL LIGHT WITHIN REACH, SAFETY MEASURES IN PLACE PER PROTOCOL, WILL CONTINUE TO MONITOR AND PROVIDE TREATMENT.
[2021-02-13 08:00] VITALS: BP 124/68
[2021-02-13] MEDS: ENOXAPARIN SODIUM 40 MG/0.4 ML DISP.SYRIN SQ SCH ×2 (08:39→20:09)
[2021-02-13] MEDS: ENSURE ENLIVE 237 ML LIQUID (VANILLA) PO SCH ×2 (09:29→16:25)
[2021-02-13 12:00] VITALS: BP 105/77
[2021-02-13 16:00] VITALS: BP 129/75
--- NOTE | 2021-02-13 18:59 | NUR ---
RN NOTE NO ACUTE CHANGES OBSERVED. AWAKE WITH HEAD OF BED ELEVATED. REMAINS ON HI FLOW NASAL CANNULA. TOLERATING SETTINGS WELL. RESPIRATIONS EVEN AND UNLABORED, SPO2 98% VIA CONTINUOUS PULSE OXIMETRY. DENIES PAIN OR DISCOMFORT. RAC IV PATENT. ALL NEEDS MET AND ATTENDED TO, SAFETY MEASURES IN PLACE PER PROTOCOL, CALL LIGHT WITHIN REACH,
[2021-02-13 20:00] VITALS: BP 112/62
[2021-02-13] MEDS: GUAIFENESIN/D-METHORPHAN HB 5 ML UDC PO PRN (22:35)
[2021-02-14] VITALS: BP 109/67
[2021-02-14 04:00] VITALS: BP 125/68
[2021-02-14] MEDS: methylPREDNISolone SOD SUCC 125 MG/2ML VIAL IV SCH ×3 (04:15→20:04)
[2021-02-14 06:33] LABS: CALCIUM, SERUM 8.3 mg/dL (8.5-10.1); CREATININE 0.6 mg/dL (0.6-1.3); POTASSIUM 4.3 mmol/L (3.5-5.1)
[2021-02-14 06:42] LABS: BASOPHILS % (AUTO) 0.1 % (0.0-2.0); EOSINOPHILS % (AUTO) 0.1 % (0.0-6.0); HEMATOCRIT 45 % (39-51); HEMOGLOBIN 14.9 g/dL (13.5-17.5); LYMPHOCYTES # (AUTO) 0.5 /CMM (0.8-4.8); LYMPHOCYTES % (AUTO) 3.5 % (20.0-44.0); MEAN CORPUSCULAR HGB CONC 33 g/dl (31.0-36.0); MEAN CORPUSCULAR VOLUME 90 fL (80-96); MONOCYTES # (AUTO) 0.6 /CMM (0.1-1.30); MONOCYTES % (AUTO) 4.2 % (2.0-12.0); NEUTROPHILS # (AUTO) 13.9 /CMM (1.8-8.9); NEUTROPHILS % (AUTO) 92.1 % (43.0-81.0); PLATELET COUNT (AUTO) 447 /CMM (150-450); RED BLOOD CELL COUNT(AUTO) 4.99 MIL/uL (4.5-6.0)
[2021-02-14 08:00] VITALS: BP 115/67
[2021-02-14] MEDS: ENOXAPARIN SODIUM 40 MG/0.4 ML DISP.SYRIN SQ SCH ×2 (08:49→20:05)
[2021-02-14] MEDS: ENSURE ENLIVE 237 ML LIQUID (VANILLA) PO SCH ×2 (08:49→18:37)
[2021-02-14 12:00] VITALS: BP 117/66
[2021-02-14 16:00] VITALS: BP 113/62
--- NOTE | 2021-02-14 19:00 | NUR ---
RN OPENING NOTE RECEIVED PATIENT IN BED RESTING ALERT ORIENTED X4 VERBALLY RESPONSIVE CANADIAN SPEAKING ON HIGH FLOW 40L OXYGEN VIA NASAL CANNULA, O2:96% IV SITE IS ON RIGHT AC INTACT PATENT,AMBULATORY WITH ASSIST,CONTINENT TO BOWEL/BLADDER,SAFETY MEASURE IMPLEMENT,CALL LIGHT WITHIN REACH,BED IN LOW POSITION AND LOCKED,HEAD OF BED ELEVATED CONTINUE TO MONITOR.
[2021-02-14 20:00] VITALS: BP 114/62
[2021-02-15] VITALS: BP 117/61
[2021-02-15 04:00] VITALS: BP 106/58
[2021-02-15] MEDS: methylPREDNISolone SOD SUCC 125 MG/2ML VIAL IV SCH ×3 (04:31→20:12)
--- NOTE | 2021-02-15 06:44 | NUR ---
RN CLOSING NOTE, PATIENT REMAINS,ALERT ORIENTED X4 VERBALLY RESPONSIVE TURK[place] SPEAKING NO SOB NOT ACUTE DISTRESS NOTED,ON 40L OXYGEN FIO2:50% O2:96% IV SITE IS ON RIGHT AC INTACT PATENT ALL DUE MEDS GIVEN MD ORDERED KEEP CLEAN AND DRY ALL THE TIME,KEEP CALL LIGHT WITHIN REACH,ALL NEEDS MET,ENDORSE NEXT COMING SHIFT FOR CONTINUATION OF CARE.
[2021-02-15 07:12] LABS: BASOPHILS % (AUTO) 0.1 % (0.0-2.0); EOSINOPHILS % (AUTO) 0.1 % (0.0-6.0); HEMATOCRIT 43 % (39-51); HEMOGLOBIN 14.4 g/dL (13.5-17.5); LYMPHOCYTES # (AUTO) 0.7 /CMM (0.8-4.8); LYMPHOCYTES % (AUTO) 4.4 % (20.0-44.0); MEAN CORPUSCULAR HGB CONC 34 g/dl (31.0-36.0); MEAN CORPUSCULAR VOLUME 89 fL (80-96); MONOCYTES # (AUTO) 0.6 /CMM (0.1-1.30); MONOCYTES % (AUTO) 3.6 % (2.0-12.0); NEUTROPHILS # (AUTO) 14.6 /CMM (1.8-8.9); NEUTROPHILS % (AUTO) 91.8 % (43.0-81.0); PLATELET COUNT (AUTO) 418 /CMM (150-450); RED BLOOD CELL COUNT(AUTO) 4.85 MIL/uL (4.5-6.0); WHITE BLOOD COUNT (AUTO) 15.9 K/uL (4.3-11.0)
[2021-02-15 07:28] LABS: CALCIUM, SERUM 8.1 mg/dL (8.5-10.1); CREATININE 0.5 mg/dL (0.6-1.3); POTASSIUM 4.7 mmol/L (3.5-5.1)
--- NOTE | 2021-02-15 07:30 | NUR ---
RN OPENING NOTE CHILEAN SPEAKING PT AWAKE, SEMIFOWLERS IN BED, A/Ox4 PER CHILEAN SPEAKING RN, ON HIGH FLOW O2 40L FIO2 50%, NO SIGNS OF RESP DISTRESS OR SOB, PT BREATHING EVEN AND UNLABORED, SPO2 98%. PT HAS A RAC #20 FLUSHED, INTACT AND PATENT WITH NO SIGNS OF INFECTION/INFILTRATION, SL. PT SKIN INTACT. ALL PT SAFETY PRECAUTIONS IN PLACE, WILL CONT TO MONITOR
[2021-02-15 08:00] VITALS: BP 113/67
--- NOTE | 2021-02-15 08:15 | NUR ---
RN NOTE PT TAKEN OFF HIGH FLOW 40L, FIO2 50% AND PLACED ON SIMPLE MASK 10L BY RT NEW. PT TOLERATING WELL SPO2 97%, NO SIGNS OF RESP DISTRESS OR SOB, WILL CONT TO MONITOR. ABG'S TO BE DRAWN SHORTLY
[2021-02-15] MEDS: ENOXAPARIN SODIUM 40 MG/0.4 ML DISP.SYRIN SQ SCH ×2 (08:40→20:13)
[2021-02-15] MEDS: ENSURE ENLIVE 237 ML LIQUID (VANILLA) PO SCH ×2 (08:40→17:36)
[2021-02-15 09:38] LABS: ABG BASE EXCESS 8.5 mmol/L; ABG PCO2 51.4 mmHg (35.0-45.0); ABG PH 7.444 (7.350-7.450); AaDO2 156.1 mmHg; COHb 0.7 % (0.5-1.5); MetHb 0.2 % (0.0-1.5); O2Hb 94.1 % (94.0-97.0); SITE, ABG Right Radial; VENT MODE, BG SIMPLE MASK
[2021-02-15 09:54] LABS: LYMPHOCYTES % (MANUAL) 2 % (16-48); MONOCYTES % (MANUAL) 6 % (0-11.0); NEUTROPHILS % (MANUAL) 92 (42-76)
[2021-02-15 12:00] VITALS: BP 119/66
[2021-02-15 13:35] LABS: C-REACTIVE PROTEIN < 0.2 mg/dL (0.0-0.9)
--- NOTE | 2021-02-15 14:20 | NUR ---
RN NOTE PT ON TELE MONITOR SINUS TACHY UP TO 120s. DR PATHAK NOTIFIED Addendum: 02/15/21 at 1420 by BRIDGETT MERAZ RN NO SIGNS OF FEVER. PT TEMP 97.6 F
[2021-02-15 16:00] VITALS: BP 129/67
--- NOTE | 2021-02-15 19:00 | NUR ---
RN CLOSING NOTE PT TOLERATING SIMPLE MASK 10L WELL. SPO2 93-98% THROUGHOUT SHIFT, NO SIGNS OF RESP DISTRESS OR SOB. PT TO CONT DEXAMETHASONE AND O2 TITRATION TOLERATED. UNABLE TO OBTAIN MEDICAL RECORDS FROM [facility] TODAY, WILL TRY AGAIN TOMORROW. ALL PT SAFETY PRECAUTIONS IN PLACE, WILL ENDORSE DIAZ TO ONCOMING RN
--- NOTE | 2021-02-15 19:00 | NUR ---
RN OPENING NOTE RECEIVED PATIENT IN BED RESTING ALERT ORIENTED X4 ABLE TO MAKE NEEDS KNOWN,UPPER SORBIAN SPEAKING ON 10L SIMPLE MASK O2:95% IV SITE IS ON RIGHT AC INTACT PATENT ,CONTINENT TO BOWEL/BLADDER,SAFETY MEASURE IMPLEMENT,CALL LIGHT WITHIN REACH,BED IN LOW POSITION AND LOCKED,CONTINUE TO MONITOR.
[2021-02-15 20:00] VITALS: BP 101/73
[2021-02-16] VITALS: BP 112/64
[2021-02-16 04:00] VITALS: BP 111/65
[2021-02-16] MEDS: methylPREDNISolone SOD SUCC 125 MG/2ML VIAL IV SCH (04:44)
[2021-02-16 06:22] LABS: BASOPHILS % (AUTO) 0.1 % (0.0-2.0); HEMATOCRIT 44 % (39-51); HEMOGLOBIN 14.3 g/dL (13.5-17.5); LYMPHOCYTES % (AUTO) 4.4 % (20.0-44.0); MEAN CORPUSCULAR HGB CONC 33 g/dl (31.0-36.0); MEAN CORPUSCULAR VOLUME 91 fL (80-96); MONOCYTES # (AUTO) 0.8 /CMM (0.1-1.30); MONOCYTES % (AUTO) 3.8 % (2.0-12.0); NEUTROPHILS # (AUTO) 20.1 /CMM (1.8-8.9); NEUTROPHILS % (AUTO) 91.7 % (43.0-81.0); PLATELET COUNT (AUTO) 405 /CMM (150-450); WHITE BLOOD COUNT (AUTO) 21.9 K/uL (4.3-11.0)
--- NOTE | 2021-02-16 06:29 | NUR ---
RN CLOSING NOTE PATIENT REMAINS IN STABLE CONDITION ALERT ORIENTED X4 VERBALLY RESPONSIVE NO SOB NOT ACUTE DISTRESS NOTED,ON 10L MASK OXYGEN O2:98% IV SITE IS ON RIGHT AC INTACT PATENT ALL DUE MEDS GIVEN MD ORDERED KEEP CLEAN AND DRY ALL THE TIME,KEEP COMFORTABLE,KEEP CALL LIGHT WITHIN REACH,ENDORSE NEXT COMING SHIFT FOR CONTINUATION OF CARE.
[2021-02-16 06:42] LABS: CALCIUM, SERUM 8.4 mg/dL (8.5-10.1); CREATININE 0.5 mg/dL (0.6-1.3); POTASSIUM 4.4 mmol/L (3.5-5.1)
--- NOTE | 2021-02-16 07:30 | NUR ---
RN OPENING NOTE GUATEMALAN SPEAKING PT AWAKE, SEMIFOWLERS IN BED, A/Ox4 PER GUATEMALAN SPEAKING RN, ON SIMPLE MASK 10L, NO SIGNS OF RESP DISTRESS OR SOB, PT BREATHING EVEN AND UNLABORED, SPO2 99%. PT SINUS NADIA TO NSR 50'S TO 60'S. PT HAS A RAC #20 FLUSHED, INTACT AND PATENT WITH NO SIGNS OF INFECTION/INFILTRATION, SL. PT SKIN INTACT. ALL PT SAFETY PRECAUTIONS IN PLACE, WILL CONT TO MONITOR
[2021-02-16 08:00] VITALS: BP 109/61
[2021-02-16] MEDS: ENSURE ENLIVE 237 ML LIQUID (VANILLA) PO SCH ×2 (08:30→17:35)
[2021-02-16] MEDS: ENOXAPARIN SODIUM 40 MG/0.4 ML DISP.SYRIN SQ SCH ×2 (08:30→20:10)
--- NOTE | 2021-02-16 11:00 | NUR ---
RN NOTE PT SON CALLED AND ALL QUESTIONS ANSWERED TO HIS FULL SATISFACTION
[2021-02-16 12:00] VITALS: BP 116/70
[2021-02-16 16:00] VITALS: BP 119/69
[2021-02-16] MEDS: methylPREDNISolone SOD SUCC 40 MG/ML VIAL IV SCH (16:30)
[2021-02-16 16:50] LABS: C-REACTIVE PROTEIN < 0.2 mg/dL (0.0-0.9)
--- NOTE | 2021-02-16 19:00 | NUR ---
RN CLOSING NOTE PT TOLERATING 4L NC WELL, SPO2 94-96%, NO SIGNS OF RESP DISTRESS OR SOB. PT URINE SAMPLE COLLECTED AND SENT FOR URINALYSIS. PT CURRENT TELEMONITOR READING SINUS TACHY HR 105. NO OTHER CHANGES TO PT DURING SHIFT. ALL PT SAFETY PRECAUTIONS IN PLACE, WILL ENDORSE DIAZ TO ONCOMING RN
--- NOTE | 2021-02-16 19:10 | NUR ---
RN OPENING NOTE RECEIVED PATIENT RESTING IN BED ALERT ORIENTED X4 VERBALLY RESPONSIVE,ABLE TO MAKE NEEDS KNOWN, SYRIAN SPEAKING,ON 4L OXYGEN VIA NASAL CANNULA,O2:97% AMBULATORY WITH ASSIST,CONTINENT TO BOWEL/BLADDER IV SITE IS ON RIGHT AC INTACT PATENT,SAFETY MEASURE IMPLEMENT,BED IN LOW POSITION AND LOCKED,BED ALARM IS ON,CALL LIGHT WITHIN REACH CONTINUE TO MONITOR
[2021-02-16 20:00] VITALS: BP 118/69
[2021-02-17] VITALS: BP 111/65
[2021-02-17 04:00] VITALS: BP 138/87
[2021-02-17 06:14] LABS: BASOPHILS # (AUTO) 0.1 /CMM (0.0-0.2); BASOPHILS % (AUTO) 0.6 % (0.0-2.0); HEMATOCRIT 44 % (39-51); HEMOGLOBIN 14.4 g/dL (13.5-17.5); LYMPHOCYTES # (AUTO) 1.3 /CMM (0.8-4.8); MEAN CORPUSCULAR HGB CONC 33 g/dl (31.0-36.0); MEAN CORPUSCULAR VOLUME 90 fL (80-96); MONOCYTES # (AUTO) 1.2 /CMM (0.1-1.30); MONOCYTES % (AUTO) 5.6 % (2.0-12.0); NEUTROPHILS # (AUTO) 18.9 /CMM (1.8-8.9); NEUTROPHILS % (AUTO) 87.8 % (43.0-81.0); PLATELET COUNT (AUTO) 400 /CMM (150-450); RED BLOOD CELL COUNT(AUTO) 4.84 MIL/uL (4.5-6.0); WHITE BLOOD COUNT (AUTO) 21.5 K/uL (4.3-11.0)
--- NOTE | 2021-02-17 06:42 | NUR ---
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
[2021-02-17 07:05] LABS: ALBUMIN 2.6 g/dL (3.4-5.0); BILIRUBIN,TOTAL 0.6 mg/dL (0.2-1.0); CALCIUM, SERUM 8.3 mg/dL (8.5-10.1); CREATININE 0.5 mg/dL (0.6-1.3); MAGNESIUM 2.4 mg/dL (1.8-2.4); PHOSPHORUS 3.5 mg/dL (2.5-4.9); POTASSIUM 4.3 mmol/L (3.5-5.1); TOTAL PROTEIN, SERUM 5.7 g/dL (6.4-8.2)
--- NOTE | 2021-02-17 07:30 | NUR ---
RN OPEN NOTES PATIENT PRESENT IN BED, AWAKE, A/OX4, [place]IAN AND [place] SPEAKER, ON 2L OF O2 VIA NC, TOLERATING WELL, SPO2 97%, DENIES PAIN OR DISCOMFORT, SKIN INTACT, UNABLE TO AMBULATE, R AC IV LINE PRESENT, FLUSHED, PATENT, INTACT, SAFETY PRECAUTIONS IN PLACE, CALL LIGHT IN REACH, BED LOCKED, IN LOWEST POISON, BED ALARM ON, WILL CONT TO MONITOR
[2021-02-17 08:00] VITALS: BP 116/63
[2021-02-17] MEDS: ENOXAPARIN SODIUM 40 MG/0.4 ML DISP.SYRIN SQ SCH ×2 (08:45→20:55)
[2021-02-17] MEDS: methylPREDNISolone SOD SUCC 40 MG/ML VIAL IV SCH ×2 (08:45→17:03)
[2021-02-17] MEDS: ENSURE ENLIVE 237 ML LIQUID (VANILLA) PO SCH ×2 (08:46→17:03)
[2021-02-17 12:00] VITALS: BP 110/63
--- NOTE | 2021-02-17 12:37 | NUR ---
patient room air sat at rest 86%.
[2021-02-17 16:00] VITALS: BP 108/64
--- NOTE | 2021-02-17 18:45 | NUR ---
RN CLOSING NOTES REMANS IN ROOM, PROVIDED WITH FOOD, MEDICATION, REPOSITIONING, ASSISTANCE WITH HYGIENE, STABLE THROUGH THE SHIFT, WILL ENDORSE TO PM SHIFT RN FOR DIAZ
--- NOTE | 2021-02-17 19:30 | NUR ---
RN OPENING NOTES: RECEIVED PT A/OX4 NEPALI SPEAKING,PT IN BED RESTING COMFORTABLY. PATIENT IN NO S/SX OF ACUTE DISTRESS AT THIS TIME. NO SOB NOTED. PATIENT'S BREATHING IS EVEN AND UNLABORED. PATIENT IS ON 2L OF OXYGEN VIA NC; TOLERATING WELL. PATIENT ON TELE MONITORING READING SINUS TACHY HR IS @100S AT THE TIME OF RECEIVED. PATIENT ON REGULAR DIET; TOLERATES WELL. NOTED IV SITE ON R AC#20; PATENT, INTACT AND FLUSHING WELL; NO S/S OF INFECTION OR INFILTRATION. SAFETY MEASURES HAVE BEEN PROVIDED AND IMPLEMENTED. PATIENT BED ALARM IS ON. HEAD OF BED ELEVATED. BED IS LOCKED, IN LOWEST POSITION AND SIDE RAILS UP. CALL LIGHT WITHIN REACH OF THE PATIENT. APPLICABLE ISOLATION PRECAUTIONS IN PLACE. WILL CONTINUE TO MONITOR AND REASSESS FOR ANY CHANGES AND WILL CARRY OUT ANY ONGOING AND ACTIVE MD ORDER.
[2021-02-17 20:00] VITALS: BP 142/100
--- NOTE | 2021-02-17 23:00 | NUR ---
RN NOTES NO CHANGE IN PATIENT CONDITION AT THIS TIME PATIENT VITALS STABLE, NO SIGNS OF ACUTE RESPIRATORY DISTRESS. SIGN HANGER SUPERVISOR MADE AWARE. WILL CONTINUE TO MONITOR AND REASSESS FOR ANY CHANGES THROUGHOUT THE SHIFT.
[2021-02-18] VITALS: BP 117/80
--- NOTE | 2021-02-18 03:00 | NUR ---
RN NOTES PATIENT REMAINS IN NO ACUTE RESPIRATORY DISTRESS AT THIS TIME, NO CHANGES TO CONDITION/STATUS. AM PATIENT CARE DONE. FLAT SCREEN WORKER WELL AWARE. WILL CONTINUE TO MONITOR AND REASSESS FOR ANY CHANGES THROUGHOUT THE SHIFT
[2021-02-18 04:00] VITALS: BP 109/70
--- NOTE | 2021-02-18 06:47 | NUR ---
RN CLOSING NOTE: PATIENT REMAINS IN ROOM IN NO SIGNS OF RESPIRATORY DISTRESS, PATIENT STILL ON 2L OF O2 VIA NC TOLERATING WELL SATURATING @ >95% SP02. SAFETY MEASURES IMPLEMENTED, BED IN LOWEST POSITION, LOCKED, SIDE RAILS UP, CALL LIGHT WITHIN REACH. ALL NEEDS AND ORDERS ADDRESSED DURING THE SHIFT. IV ACCESS MAINTAINED INTACT, SECURED AND FLUSHING WELL. ALL DUE MEDS GIVEN ORDERED & SCHEDULED ; PATIENT TOLERATED WELL. PATIENT KEPT CLEAN AND COMFORTABLE WITHIN THE SHIFT. PATIENT ENDORSED TO INCOMING SHIFT RN WITH STABLE VITAL SIGN AND FOR CONTINUITY OF CARE.
--- NOTE | 2021-02-18 07:30 | NUR ---
RN OPENING NOTE: PATIENT IN BED, NO SIGNS OF RESPIRATORY DISTRESS. PATIENT CONTINUES ON 2L OF O2 VIA NC TOLERATING WELL SATURATING @ >95% SP02. SAFETY MEASURES IMPLEMENTED, BED IN LOWEST POSITION, LOCKED, SIDE RAILS UP, CALL LIGHT WITHIN REACH. ALL NEEDS ADDRESSED AT THIS TIME. IV ACCESS INTACT, SECURED AND FLUSHING WELL. WILL CONTINUE POC.
[2021-02-18 08:00] VITALS: BP 114/73
[2021-02-18] MEDS: ENSURE ENLIVE 237 ML LIQUID (VANILLA) PO SCH ×2 (08:57→17:09)
[2021-02-18] MEDS: methylPREDNISolone SOD SUCC 40 MG/ML VIAL IV SCH (08:58)
[2021-02-18] MEDS: ENOXAPARIN SODIUM 40 MG/0.4 ML DISP.SYRIN SQ SCH (09:00)
[2021-02-18 12:00] VITALS: BP 114/68
[2021-02-18 16:00] VITALS: BP 110/70
[2021-02-18] MEDS ORDERED: methylPREDNISolone SOD SUCC 40 MG/ML VIAL IV SCH (17:00)
[2021-02-18 17:42] VITALS: BP 110/70
--- NOTE | 2021-02-18 18:45 | NUR ---
Patient discharged to home via private auto with son. No s/s of discomfort or distress. Oxygen provided for transport and placed at 2 L/min via nasal cannula. Concentrator delivered to home. IV and equipment operating engineer removed. All belongings sent with patient. Discharge/follow up instructions provided to patient and son. Rx provided. Patient and son verbalized understanding.
== END 2021-02-18 19:30 | disposition home health service (06) | DRG 137 ==
LOC: TELE1 19:55
PROVIDERS: ADMIT Nurse Practitioner Acute Care
PROC: XW033H5 Introduction of Tocilizumab into Peripheral Vein, Percutaneous Approach, New Technology Group 5 (ICD-10-PCS; principal; 2021-02-08)
DX: U07.1 COVID-19 (principal); J96.01 Acute respiratory failure with hypoxia; J12.82 Pneumonia due to coronavirus disease 2019; N17.0 Acute kidney failure with tubular necrosis; D68.59 Other primary thrombophilia; J44.0 Chronic obstructive pulmonary disease with (acute) lower respiratory infection; Z79.01 Long term (current) use of anticoagulants; E44.0 Moderate protein-calorie malnutrition; Z72.0 Tobacco use; Z74.09 Other reduced mobility
CPT/HCPCS: 36415; 36600; 71045-TC; 80048-TC; 80053-TC; 80061-TC; 82570-TC; 82728-TC; 82803-TC; 83615-TC; 83735-TC; 84100-TC; 84443-TC; 85025-TC; 85378-TC; 85730-TC; 86140-TC; 86480; 87081-TC; 94760-TC; 94762-TC; 94799-TC; 97112-TC; 97530-TC; A4217; G0378; J0456; J0696; J1100; J1200; J1650; J2270; J2920; J2930; J3262; J7030; J7050; J7060